=== PATIENT | female | born 1975 ===

== ENCOUNTER 2017-05-02 09:20 | Emergency (ER) | payer OTHER ==
[2017-05-02 09:20] VITALS: BMI 21.5
[2017-05-02 09:36] VITALS: RESP 20; TEMP 98.7
[2017-05-02] MEDS ORDERED: Aluminum Hydroxide/Magnesium Hydroxide Susp (30 mL) PO STA (10:18)
[2017-05-02] MEDS ORDERED: Sodium Chloride 0.9% 1,000 ML IV ONE (10:18)
[2017-05-02] MEDS ORDERED: Belladonna-Phenobarbital PO STA (10:18)
[2017-05-02] MEDS ORDERED: Sodium Chloride 0.9% 1,000 ML ONE (10:30)
[2017-05-02] MEDS ORDERED: Aluminum Hydroxide/Magnesium Hydroxide Susp (30 mL) ONE (10:30)
[2017-05-02] MEDS ORDERED: Belladonna-Phenobarbital ONE (10:30)
[2017-05-02 10:33] LABS: BASO # 0.1 K/uL (0.0-0.2); BASO % 0.6 % (0.0-2.0); EOS # 0.1 K/uL (0.0-0.7); EOS % 1.4 % (0.0-4.0); HEMOGLOBIN 14.2 g/dL (11.0-16.0); LYMPH # 2.5 K/uL (1.0-4.3); LYMPH % 27.5 % (20.0-40.0); MEAN CELL VOLUME 89.3 fL (81.0-99.0); MEAN CORPUSCULAR HEMOGLOBIN 31.2 pg (27.0-31.0); MEAN PLATELET VOLUME 8.9 fL (7.2-11.7); MONO # 0.7 K/uL (0.0-0.8); MONO % 7.5 % (0.0-10.0); NEUT # 5.6 K/uL (1.8-7.0); RBC 4.53 Mil/uL (3.80-5.20); RED CELL DISTRIBUTION WIDTH 12.8 % (11.5-14.5)
[2017-05-02 10:36] LABS: HCG,QUALITATIVE URINE NEGATIVE (NEGATIVE)
[2017-05-02 10:39] LABS: URINE BILIRUBIN NEGATIVE (NEGATIVE); URINE BLOOD 1+ (NEGATIVE); URINE CLARITY Clear (Clear); URINE COLOR Colorless (YELLOW); URINE GLUCOSE (UA) NORMAL (Normal); URINE LEUKOCYTE ESTERASE NEG Leu/uL (Negative); URINE PROTEIN NEGATIVE (NEGATIVE); URINE UROBILINOGEN NORMAL mg/dL (0.2-1.0)
[2017-05-02 10:47] LABS: ALB/GLOB RATIO 1.3 (1.0-2.1); ALBUMIN 4.1 g/dL (3.5-5.0); ALT/SGPT 21 U/L (9-52); AST/SGOT 21 U/L (14-36); BLOOD UREA NITROGEN 12 mg/dL (7-17); CALCIUM 9.2 mg/dl (8.6-10.4); GFR AFRICAN-AMERICAN > 60; GFR NON-AFRICAN AMERICAN > 60; LIPASE 65 U/L (23-300)
--- NOTE | 2017-05-02 10:56 | C.PDOC ---
History Of Present Illness 42 year old female presents to the ED c/o abdominal pain, groin pain and right flank pain for a week. Patient states she went to see her OBGYN 2 days ago and she was prescribed ibuprofen and antibiotics. Patient has also noted increased urinary frequency.Patient denies nausea, vomit, diarrhea, back pain, dysuria, hematuria. Time Seen by Provider: 05/02/17 09:57 Chief Complaint (Nursing): Abdominal Pain History Per: Patient History/Exam Limitations: no limitations Onset/Duration Of Symptoms: Days Location Of Pain/Discomfort: Epigastric, Suprapubic Radiation Of Pain To:: None Quality Of Discomfort: "Pain" Associated Symptoms: Nausea Exacerbating Factors: None Alleviating Factors: None Recent travel outside of the [place]: No Additional History Per: Patient Abnormal Vaginal Bleeding: No Past Medical History Reviewed: Historical Data, Nursing Documentation, Vital Signs Vital Signs: Last Vital Signs Temp 98.7 F 05/02/17 09:34 Pulse 77 05/02/17 12:49 Resp 20 05/02/17 12:49 BP 100/65 05/02/17 12:49 Pulse Ox 98 05/02/17 18:57 - Medical History PMH: No Chronic Diseases Denies: Chronic Kidney Disease Surgical History: Appendectomy - [facility] Procedures ASPIR CURETT UTERUS NEC (04/30/14) D & C NEC (10/12/13) LAPAROSCOP LYSIS-PERITONEAL ADHES (04/30/14) LOCAL EXCIS BREAST LES (08/17/14) SUBTOTAL MASTECTOMY (08/31/14) Family History: States: Unknown Family Hx - Social History Hx Tobacco Use: No Hx Alcohol Use: No Hx Substance Use: No - Immunization History Hx Tetanus Toxoid Vaccination: No Hx Influenza Vaccination: No Hx Pneumococcal Vaccination: No Review Of Systems Constitutional: Negative for: Fever, Chills Cardiovascular: Negative for: Chest Pain, Palpitations Gastrointestinal: Positive for: Nausea, Abdominal Pain Genitourinary: Positive for: Frequency Musculoskeletal: Negative for: Back Pain Skin: Negative for: Rash Neurological: Negative for: Weakness, Numbness Physical Exam - Physical Exam Appears: Non-toxic, No Acute Distress Skin: Normal Color, Warm, Dry Head: Atraumatic, Normacephalic Eye(s): bilateral: Normal Inspection Nose: No Discharge Oral Mucosa: Moist Neck: Normal ROM, Supple Chest: Symmetrical Cardiovascular: Rhythm Regular, No Murmur Respiratory: Normal Breath Sounds, No Rales, No Rhonchi, No Wheezing Gastrointestinal/Abdominal: Soft, Tenderness (Mild), No Guarding, No Rebound Back: No CVA Tenderness Extremity: Normal ROM, No Tenderness, No Swelling Neurological/Psych: Oriented x3 Gait: Steady ED Course And Treatment - Laboratory Results Result Diagrams: 05/02/17 10:27 05/02/17 10:27 O2 Sat by Pulse Oximetry: 98 (On RA) Pulse Ox Interpretation: Normal - CT Scan/US CT abd/pelvis Other Rad Studies (CT/US): Read By Radiologist, Radiology Report Reviewed CT/US Interpretation: FINDINGS: LOWER THORAX: No visible consolidation, pleural effusion, or pneumothorax. LIVER: Unremarkable. GALLBLADDER AND BILE DUCTS: Unremarkable. PANCREAS: Unremarkable. SPLEEN: Unremarkable. ADRENALS: Unremarkable. KIDNEYS AND URETERS: The kidneys enhance symmetrically. No hydronephrosis or obstructing calculus identified. VASCULATURE: No aortic aneurysm. BOWEL: Stomach is nondistended. Lack of oral contrast limits evaluation for bowel pathology. Bowel loops appear within normal limits of caliber without evidence of obstruction. APPENDIX: The appendix is not clearly identified. No secondary signs of acute appendicitis appreciated. PERITONEUM: No significant free fluid. No definite free air. LYMPH NODES: No bulky adenopathy identified. BLADDER: Under distended urinary bladder appears otherwise unremarkable. REPRODUCTIVE: The uterus is present. Right adnexal cystic lesions, presumably ovarian cyst. Recommend pelvic ultrasound for further evaluation. BONES: No acute osseous abnormality is detected. OTHER FINDINGS: None. IMPRESSION: Right adnexal cystic lesions , presumably ovarian cysts. Recommend pelvic ultrasound for further evaluation. The appendix is not clearly identified. No secondary signs of acute appendicitis appreciated. Correlate clinically. Medical Decision Making Medical Decision Making: Plan: * CT abd/pelvis * Labs * CXR * UA * Urine culture * 1 tab PO * Maalox 30 ml PO * IV fluids * Zofran 4 mg IVP On re-exam, the patient reports improvement of symptoms. Lungs are CTA, heart is RRR, abdomen is soft, non-tender and tolerating PO well. Ambulatory in the ED steady gait. Follow up with the medical doctor within 1-2 days. Return if worsened. Disposition - Disposition Referrals: [facility] at [facility] [Outside] Lars Serrano MD [Staff Provider] - Disposition: HOME/ ROUTINE Disposition Time: 13:11 Condition: GOOD Additional Instructions: Follow up with the medical doctor/OBGYN within 1-2 days. Return if worsened. 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 - Scribe Statement The provider has reviewed the documentation as recorded by the Scribherman Dodson All medical record entries made by the Tianibherman were at my direction and personally dictated by me. I have reviewed the chart and agree that the record accurately reflects my personal performance of the history, physical exam, medical decision making, and the department course for this patient. I have also personally directed, reviewed, and agree with the discharge instructions and disposition.
[2017-05-02] MEDS ORDERED: Iodixanol 320 MG/ML 100 ML BOTTLE IV ONE (11:40)
--- NOTE | 2017-05-02 11:42 | RAD ---
HISTORY: abd pain COMPARISON: Chest x-ray performed 08/13/14 TECHNIQUE: Chest, one view. FINDINGS: LUNGS: Mild biapical pleural thickening. No focal consolidation. Please note that chest x-ray has limited sensitivity for the detection of pulmonary masses. PLEURA: No significant pleural effusion identified. No definite pneumothorax . CARDIOVASCULAR: The cardiomediastinal silhouette appears within normal limits of size. OSSEOUS STRUCTURES: No acute osseous abnormality identified. VISUALIZED UPPER ABDOMEN: Unremarkable. OTHER FINDINGS: None. IMPRESSION: No focal consolidation identified.
--- NOTE | 2017-05-02 12:29 | CT ---
PROCEDURE: CT Abdomen and Pelvis with contrast HISTORY: RLQ abd pain COMPARISON: None available. TECHNIQUE: Contrast dose: Radiation dose: Total exam DLP = mGy-cm. This CT exam was performed using one or more of the following dose reduction techniques: Automated exposure control, adjustment of the mA and/or kV according to patient size, and/or use of iterative reconstruction technique. FINDINGS: LOWER THORAX: No visible consolidation, pleural effusion, or pneumothorax. LIVER: Unremarkable. GALLBLADDER AND BILE DUCTS: Unremarkable. PANCREAS: Unremarkable. SPLEEN: Unremarkable. ADRENALS: Unremarkable. KIDNEYS AND URETERS: The kidneys enhance symmetrically. No hydronephrosis or obstructing calculus identified. VASCULATURE: No aortic aneurysm. BOWEL: Stomach is nondistended. Lack of oral contrast limits evaluation for bowel pathology. Bowel loops appear within normal limits of caliber without evidence of obstruction. APPENDIX: The appendix is not clearly identified. No secondary signs of acute appendicitis appreciated. PERITONEUM: No significant free fluid. No definite free air. LYMPH NODES: No bulky adenopathy identified. BLADDER: Under distended urinary bladder appears otherwise unremarkable. REPRODUCTIVE: The uterus is present. Right adnexal cystic lesions, presumably ovarian cyst. Recommend pelvic ultrasound for further evaluation. BONES: No acute osseous abnormality is detected. OTHER FINDINGS: None. IMPRESSION: Right adnexal cystic lesions, presumably ovarian cysts. Recommend pelvic ultrasound for further evaluation. The appendix is not clearly identified. No secondary signs of acute appendicitis appreciated. Correlate clinically.
[2017-05-02 12:49] VITALS: BP 100/65; PULSE 77
[2017-05-02 13:13] VITALS: O2SAT 98
== END 2017-05-02 13:50 | disposition home or self-care (01) ==
LOC: C.ER 09:20
DX: K29.70 Gastritis, unspecified, without bleeding (principal); K21.9 Gastro-esophageal reflux disease without esophagitis; N83.209 Unspecified ovarian cyst, unspecified side
CPT/HCPCS: 71045; 74177; 80053; 81001; 83690; 84703; 85025; 87086; 96361; 96374; 96375; 99284; C9113; J1885; J2405; J7040; Q9967

== ENCOUNTER 2018-02-23 01:02 | Emergency (ER) | payer SELFPAY ==
[2018-02-23 01:03] VITALS: BMI 21.5
[2018-02-23 01:32] VITALS: O2SAT 99
[2018-02-23] MEDS ORDERED: Sodium Chloride 0.9% 1,000 ML IV ONE (01:59)
[2018-02-23] MEDS ORDERED: DiphenhydrAMINE 50 mg/ml Inj IVP STA (02:01)
[2018-02-23] MEDS ORDERED: DiphenhydrAMINE 50 mg/ml Inj ONE (02:35)
[2018-02-23 02:36] LABS: BASO # 0.1 K/uL (0.0-0.2); BASO % 0.7 % (0.0-2.0); EOS # 0.2 K/uL (0.0-0.7); HEMOGLOBIN 14.1 g/dL (11.0-16.0); LYMPH # 2.8 K/uL (1.0-4.3); LYMPH % 26.5 % (20.0-40.0); MEAN CELL VOLUME 89.4 fL (81.0-99.0); MEAN CORPUSCULAR HEMOGLOBIN 30.4 pg (27.0-31.0); MEAN PLATELET VOLUME 8.4 fL (7.2-11.7); MONO # 0.8 K/uL (0.0-0.8); MONO % 8.1 % (0.0-10.0); NEUT # 6.5 K/uL (1.8-7.0); NEUT % 62.7 % (50.0-75.0); RBC 4.64 Mil/uL (3.80-5.20); RED CELL DISTRIBUTION WIDTH 12.9 % (11.5-14.5); WHITE BLOOD COUNT 10.4 K/uL (4.8-10.8)
[2018-02-23] MEDS ORDERED: Sodium Chloride 0.9% 1,000 ML ONE (02:36)
[2018-02-23 02:51] LABS: ALB/GLOB RATIO 1.4 (1.0-2.1); ALBUMIN 4.1 g/dL (3.5-5.0); ALT/SGPT 25 U/L (9-52); AST/SGOT 20 U/L (14-36); BLOOD UREA NITROGEN 12 mg/dL (7-17); CALCIUM 8.9 mg/dl (8.6-10.4); GFR NON-AFRICAN AMERICAN > 60
[2018-02-23 03:58] LABS: HCG,QUALITATIVE URINE NEGATIVE (NEGATIVE)
[2018-02-23 03:59] LABS: SQUAMOUS EPITHIAL 1 /hpf (0-5); URINE BACTERIA RARE (<OCC); URINE BILIRUBIN NEGATIVE (NEGATIVE); URINE BLOOD 1+ (NEGATIVE); URINE CLARITY Clear (Clear); URINE COLOR Straw (YELLOW); URINE GLUCOSE (UA) NORMAL (Normal); URINE LEUKOCYTE ESTERASE NEG Leu/uL (Negative); URINE PROTEIN NEGATIVE (NEGATIVE); URINE UROBILINOGEN NORMAL mg/dL (0.2-1.0)
--- NOTE | 2018-02-23 04:10 | C.PDOC ---
History Of Present Illness 43 y/o female presents to the ED complaining of a 3 day history of frontal headache, radiating down to her neck. No associated photophobia or dizziness. Patient reports she tried advil OTC with no relief. She then took sumatriptan (f rom a friend) without relief. Otherwise she denies any fever, trauma, neck stiffness, visual changes, nausea, vomiting, numbness, or weakness. Time Seen by Provider: 02/23/18 01:40 Chief Complaint (Nursing): Headache History Per: Patient History/Exam Limitations: no limitations Onset/Duration Of Symptoms: Days (x 3) Current Symptoms Are (Timing): Still Present Preceeding Symptoms: None Recent travel outside of the [place]: No Past Medical History Reviewed: Historical Data, Nursing Documentation, Vital Signs Vital Signs: Last Vital Signs Temp 98.2 F 02/23/18 01:19 Pulse 89 02/23/18 01:19 Resp 20 02/23/18 01:19 BP 109/73 02/23/18 01:19 Pulse Ox 99 02/23/18 01:19 - Medical History PMH: Denies: Chronic Kidney Disease Surgical History: Appendectomy - [facility] Procedures ASPIR CURETT UTERUS NEC (04/30/14) D & C NEC (10/12/13) LAPAROSCOP LYSIS-PERITONEAL ADHES (04/30/14) LOCAL EXCIS BREAST LES (08/17/14) SUBTOTAL MASTECTOMY (08/31/14) Family History: States: Unknown Family Hx - Social History Hx Tobacco Use: No Hx Alcohol Use: No Hx Substance Use: No - Immunization History Hx Tetanus Toxoid Vaccination: No Hx Influenza Vaccination: No Hx Pneumococcal Vaccination: No Review Of Systems Constitutional: Negative for: Fever, Chills Eyes: Negative for: Vision Change Cardiovascular: Negative for: Chest Pain Respiratory: Negative for: Shortness of Breath Gastrointestinal: Negative for: Nausea, Vomiting Musculoskeletal: Negative for: Neck Pain Neurological: Positive for: Headache. Negative for: Weakness, Numbness, Incoordination, Dizziness Physical Exam - Physical Exam Appears: Non-toxic, No Acute Distress Skin: Warm, Dry Head: Atraumatic, Normacephalic, Other (No temporal artery tenderness) Eye(s): bilateral: Normal Inspection (with normal fundoscopic exam), PERRL, EOMI Oral Mucosa: Moist Throat: No Erythema, No Exudate Neck: Normal ROM, Supple, Other (No meningeal signs) Chest: Symmetrical Cardiovascular: Rhythm Regular, No Friction Rub, No Murmur Respiratory: Normal Breath Sounds, No Rales, No Rhonchi, No Wheezing Gastrointestinal/Abdominal: Soft, No Tenderness, No Distention Back: Normal Inspection, No CVA Tenderness, No Vertebral Tenderness, No Paraspinal Tenderness Extremity: Normal ROM, No Tenderness, No Swelling Extremity: Bilateral: Atraumatic, Normal Color And Temperature, Normal ROM Pulses: Left Dorsalis Pedis: Normal, Right Dorsalis Pedis: Normal Neurological/Psych: Oriented x3, Normal Speech, Normal Cranial Nerves (2-12 intact), Normal Motor, Normal Sensation, Other (No focal deficits) Gait: Steady ED Course And Treatment - Laboratory Results Result Diagrams: 02/23/18 02:34 02/23/18 02:34 O2 Sat by Pulse Oximetry: 99 (RA) Pulse Ox Interpretation: Normal Medical Decision Making Medical Decision Making: Plan: --Blood work --Urinalysis --IV fluids --10 mg IV Reglan --25 mg IV Benadryl On re-exam, the patient reports improvement of symptoms. Lungs are CTA, heart is RRR, abdomen is soft, non-tender and the patient is tolerating PO well. Ambulatory in the Ed with steady gait. Follow up with the medical doctor within 1-2 days. Return if worsened. Disposition - Disposition Referrals: [facility] at [facility] [Outside] Disposition: HOME/ ROUTINE Disposition Time: 04:06 Condition: STABLE Additional Instructions: Follow up with the medical doctor within 1-2 days. Return if worsened. 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 - Scribe Statement The provider has reviewed the documentation as recorded by the Scribherman Carrington All medical record entries made by the Scribe were at my direction and personally dictated by me. I have reviewed the chart and agree that the record accurately reflects my personal performance of the history, physical exam, medical decision making, and the department course for this patient. I have also personally directed, reviewed, and agree with the discharge instructions and disposition.
[2018-02-23 04:45] VITALS: BP 110/75; PULSE 70; RESP 14; TEMP 97.5
== END 2018-02-23 04:45 | disposition home or self-care (01) ==
LOC: C.ER 01:02
DX: R51 Headache (principal)
CPT/HCPCS: 80053; 81001; 84703; 85025; 96374; 99284; J1200; J2765; J7030

== ENCOUNTER 2018-02-28 20:22 | Emergency (ER) | payer SELFPAY ==
[2018-02-28 20:23] VITALS: BMI 21.5
[2018-02-28 20:36] VITALS: O2SAT 97
[2018-02-28] MEDS ORDERED: Sodium Chloride 0.9% 1,000 ML IV ONE (21:04)
[2018-02-28] MEDS ORDERED: DiphenhydrAMINE 50 mg/ml Inj IVP STA (21:04)
--- NOTE | 2018-02-28 21:14 | C.PDOC ---
History Of Present Illness CC "palpitations, dizziness, weakness" HPI: Patient is a 43 year old female who presents for episodes of palpitations, dizziness, and weakness all over that has been ongoing for the past 3 days. She was recently seen here on 6 days ago for migraine headache and was discharged home with Ibuprofen and Reglan. She stated she went to her PMD Dr. Amezcua who prescribed her Sumatriptan 100mg, after which she has had episodes of palpit ations, dizziness and diffuse weakness all over. She also admits to chills and mild nasal congestion. She denies sore throat, cough, chest pain, palpitations, abdominal pain, vomiting, diarrhea ,constipation, urinary symptoms, leg pain. PMH: none PSH: appendectmy, breast cyst, ovarian cyst, ectopic Social hx: denies smoking, alcohol or drug use. Allergies: NKDA PMD: Dr. Amezcua Time Seen by Provider: 02/28/18 20:42 Chief Complaint (Nursing): Headache Past Medical History Vital Signs: Last Vital Signs Temp 98.4 F 02/28/18 20:31 Pulse 102 H 02/28/18 20:31 Resp 16 02/28/18 20:31 BP 145/84 02/28/18 20:31 Pulse Ox 97 02/28/18 20:31 - Medical History PMH: Migraine Denies: Chronic Kidney Disease Surgical History: Appendectomy - [facility] Procedures ASPIR CURETT UTERUS NEC (04/30/14) D & C NEC (10/12/13) LAPAROSCOP LYSIS-PERITONEAL ADHES (04/30/14) LOCAL EXCIS BREAST LES (08/17/14) SUBTOTAL MASTECTOMY (08/31/14) Family History: States: Unknown Family Hx - Social History Hx Tobacco Use: No Hx Alcohol Use: No Hx Substance Use: No - Immunization History Hx Tetanus Toxoid Vaccination: No Hx Influenza Vaccination: No Hx Pneumococcal Vaccination: No Review Of Systems Constitutional: Positive for: Chills, Weakness Cardiovascular: Positive for: Palpitations. Negative for: Chest Pain, Orthopnea, Edema Respiratory: Negative for: Cough, Shortness of Breath Gastrointestinal: Negative for: Nausea, Vomiting, Abdominal Pain, Diarrhea Genitourinary: Negative for: Dysuria, Frequency Neurological: Negative for: Weakness, Numbness, Confusion, Seizures, Altered Mental Status, Headache Physical Exam - Physical Exam Appears: Non-toxic Skin: Warm, Dry Head: Atraumatic, Normacephalic Eye(s): bilateral: PERRL, EOMI Ear(s): Bilateral: Normal Nose: Normal Oral Mucosa: Moist Tongue: Normal Appearing Neck: Normal, No Midline Cervical Tenderness Chest: Symmetrical Cardiovascular: Rhythm Regular, No Friction Rub, No Murmur, No JVD Respiratory: Normal Breath Sounds, No Accessory Muscle Use, No Rales, No Rhonchi, No Stridor, No Wheezing, No Plerual Rub Gastrointestinal/Abdominal: Bowel Sounds, Soft, No Tenderness, No Mass, No Distention, No Guarding Back: No CVA Tenderness Extremity: Normal ROM, No Tenderness, No Pedal Edema, No Calf Tenderness, Capillary Refill Pulses: Left Dorsalis Pedis: Normal, Right Dorsalis Pedis: Normal Neurological/Psych: Oriented x3, Normal Speech, Normal Cognition, Normal Cranial Nerves, Cerebellar Signs, Normal Motor, Normal Sensation ED Course And Treatment - Laboratory Results Result Diagrams: 02/28/18 21:34 02/28/18 21:34 Interpretation Of ECG: SR at 93, no ST-T abnormality. O2 Sat by Pulse Oximetry: 97 Disposition - Disposition Referrals: [facility] [Outside] [facility] [Outside] Luke Cerna MD [Staff Provider] - Liu Angeles MD [Staff Provider] - Disposition: HOME/ ROUTINE Disposition Time: 23:30 Condition: GOOD Additional Instructions: return to er with worsening symptosm or concenrs. follow up with your doctor/clinic. Instructions: Dizziness, Nonvertigo, (DC), Viral Syndrome (DC) Forms: [employer] (Guinean) - Clinical Impression Clinical Impression: Dizziness, Viral syndrome
[2018-02-28 21:39] LABS: BASO # 0.1 K/uL (0.0-0.2); BASO % 0.7 % (0.0-2.0); EOS % 0.2 % (0.0-4.0); HEMOGLOBIN 14.6 g/dL (11.0-16.0); LYMPH # 1.9 K/uL (1.0-4.3); LYMPH % 15.6 % (20.0-40.0); MEAN CELL VOLUME 87.7 fL (81.0-99.0); MEAN CORPUSCULAR HEMOGLOBIN 30.2 pg (27.0-31.0); MEAN CORPUSCULAR HGB CONC 34.4 g/dL (33.0-37.0); MONO # 0.9 K/uL (0.0-0.8); MONO % 7.9 % (0.0-10.0); NEUT % 75.6 % (50.0-75.0); NRBC % 0.1 % (0.0-2.0); RBC 4.85 Mil/uL (3.80-5.20); RED CELL DISTRIBUTION WIDTH 13.1 % (11.5-14.5); WHITE BLOOD COUNT 11.9 K/uL (4.8-10.8)
[2018-02-28 21:44] LABS: INR 1.1; PROTHROMBIN TIME 12.3 SECONDS (9.7-12.2)
[2018-02-28 21:51] LABS: ALB/GLOB RATIO 1.6 (1.0-2.1); ALBUMIN 4.5 g/dL (3.5-5.0); ALT/SGPT 22 U/L (9-52); AST/SGOT 17 U/L (14-36); BLOOD UREA NITROGEN 7 mg/dL (7-17); CALCIUM 9.1 mg/dl (8.6-10.4); GFR NON-AFRICAN AMERICAN > 60
[2018-02-28 22:25] LABS: SQUAMOUS EPITHIAL 2 /hpf (0-5); URINE BILIRUBIN NEGATIVE (NEGATIVE); URINE BLOOD 2+ (NEGATIVE); URINE CLARITY Clear (Clear); URINE COLOR Straw (YELLOW); URINE GLUCOSE (UA) NORMAL (Normal); URINE LEUKOCYTE ESTERASE NEG Leu/uL (Negative); URINE PROTEIN NEGATIVE (NEGATIVE); URINE UROBILINOGEN NORMAL mg/dL (0.2-1.0)
[2018-02-28 23:35] VITALS: BP 110/74; PULSE 93; RESP 18; TEMP 98.6
--- NOTE | 2018-03-01 08:29 | CT ---
Date of service: 02/28/2018 PROCEDURE: CT HEAD WITHOUT CONTRAST. HISTORY: Headache COMPARISON: None available. TECHNIQUE: Axial computed tomography images were obtained through the head/brain without intravenous contrast. Radiation dose: Total exam DLP = 974.58 mGy-cm. This CT exam was performed using one or more of the following dose reduction techniques: Automated exposure control, adjustment of the mA and/or kV according to patient size, and/or use of iterative reconstruction technique. FINDINGS: HEMORRHAGE: No intracranial hemorrhage. BRAIN: Mckeon-white matter differentiation is preserved. There is no mass, mass effect or abnormal extra-axial fluid collection. There is no territorial infarction. The midline sagittal structures are normal. VENTRICLES: The ventricles are normal in size, shape and configuration. CALVARIUM: There is no calvarial fracture or extracranial soft tissue swelling. PARANASAL SINUSES: Predominantly clear. MASTOID AIR CELLS: Predominantly clear. OTHER FINDINGS: None. IMPRESSION: No acute intracranial abnormality. A preliminary report was provided by [employer].
--- NOTE | 2018-03-01 09:10 | RAD ---
Date of service: 02/28/2018 HISTORY: Palpitations COMPARISON: 05/02/2017 TECHNIQUE: Chest PA and lateral FINDINGS: LINES AND TUBES: None. LUNG AND PLEURA: The lungs are well inflated and clear. No pleural effusion or pneumothorax. HEART AND MEDIASTINUM: The heart is not enlarged. No aortic atherosclerotic calcifications present. The hilar and mediastinal contours are within normal limits. SKELETAL STRUCTURES: The bony structures are within normal limits for the patient's age. VISUALIZED UPPER ABDOMEN: Normal. OTHER FINDINGS: None. IMPRESSION: No active pulmonary disease.
--- NOTE | 2018-03-07 23:32 | CARD ---
APPROVED REPORT Date of service: 02/28/2018 EKG Measurement Heart [id number] <Conclusion> Normal sinus rhythm Normal ECG
== END 2018-02-28 23:57 | disposition home or self-care (01) ==
LOC: C.ER 20:22
DX: B34.9 Viral infection, unspecified (principal); R42 Dizziness and giddiness
CPT/HCPCS: 70450; 71046; 80053; 81001; 84484; 84703; 85025; 85610; 85730; 87804; 93005; 96360; 99284; J7030

== ENCOUNTER 2018-03-24 08:11 | Outpatient (CLI) | payer OTHER | END 2018-03-24 08:12 | disposition home or self-care (01) | LOC: C.LAB 08:11 ==

== ENCOUNTER 2018-03-27 09:40 | Outpatient (CLI) | payer OTHER | END 2018-03-27 09:41 | disposition home or self-care (01) | LOC: C.CARD 09:40 ==

== ENCOUNTER 2018-04-08 09:59 | Outpatient (CLI) | payer OTHER | END 2018-04-08 10:00 | disposition home or self-care (01) | LOC: C.CARD 09:59 | DX: R07.89 Other chest pain (principal); I10 Essential (primary) hypertension ==

== ENCOUNTER 2018-06-03 08:41 | Outpatient (CLI) | payer OTHER | END 2018-06-03 08:42 | disposition home or self-care (01) | LOC: C.LAB 08:41 | DX: Z00.00 Encounter for general adult medical examination without abnormal findings (principal) ==